=== PATIENT | male | born 1970 | race Caucasian/White ===

== ENCOUNTER 2018-01-23 06:58 | Emergency (ER) | payer MEDICAID ==
[~2018-01-23] VITALS: Ht 175.3 cm; Wt 86.2 kg
[2018-01-23 07:15] VITALS: BP 127/83
[2018-01-23] MEDS ORDERED: KETOROLAC TROMETH 60MG/2ML VIAL IM ONE (10:45)
[2018-01-23] MEDS ORDERED: cefTRIAXone SOD 1,000 MG VL IM ONE (10:45)
[2018-01-23] MEDS ORDERED: LIDOCAINE 1% (LOCAL ANESTH.) PF 5ml SDV ONE (10:47)
== END 2018-01-23 11:00 | disposition home or self-care (01) ==
LOC: ER 06:58
DX: K61.0 Anal abscess (principal)
CPT/HCPCS: 96372; 99284; J0696; J1885

== ENCOUNTER 2020-09-12 13:30 | Emergency (ER) | payer MEDICAID ==
[~2020-09-12] VITALS: Ht 175.3 cm; Wt 86.2 kg
[2020-09-12] MEDS ORDERED: KETOROLAC TROMETH 60MG/2ML VIAL IM ONE (14:45)
[2020-09-12] MEDS ORDERED: cefTRIAXone SOD 1,000 MG VL IM ONE (14:45)
[2020-09-12 15:57] VITALS: BP 129/82
== END 2020-09-12 16:23 | disposition home or self-care (01) ==
LOC: ER 13:30
DX: K04.7 Periapical abscess without sinus (principal)
CPT/HCPCS: 96372; 99284; J0696; J1885

== ENCOUNTER 2022-07-09 20:02 | Emergency (ER) | payer MEDICAID ==
[~2022-07-09] VITALS: Ht 175.3 cm; Wt 72.5 kg
[2022-07-09] MEDS ORDERED: CEPH-510 PO (23:35)
[2022-07-09 23:41] VITALS: BP 121/71
== END 2022-07-09 23:44 | disposition home or self-care (01) ==
LOC: ER 20:02
DX: S80.811D Abrasion, right lower leg, subsequent encounter (principal); F17.210 Nicotine dependence, cigarettes, uncomplicated; Z79.2 Long term (current) use of antibiotics; V89.2XXD Person injured in unspecified motor-vehicle accident, traffic, subsequent encounter